=== PATIENT | female | born 1995 | race African-American/Black ===

== ENCOUNTER 2024-03-16 08:36 | Emergency (ER) | payer SELFPAY ==
[~2024-03-16] VITALS: Ht 165.1 cm; Wt 72.0 kg
[2024-03-16] MEDS ORDERED: AZITHROMYC200 MG/5 M PO (09:34)
[2024-03-16] MEDS ORDERED: AZITHROMYCIN 300mg/15mL BTL (100mg/5mL) PO ONE (09:35)
[2024-03-16 10:09] VITALS: BP 106/64
== END 2024-03-16 10:21 | disposition home or self-care (01) | DRG 153 ==
LOC: ED 08:36
DX: J06.9 Acute upper respiratory infection, unspecified (principal); Z20.822 Contact with and (suspected) exposure to COVID-19